=== PATIENT | male | born 1980 | race American Indian/Alaskan Native ===

== ENCOUNTER 2017-10-13 22:53 | Emergency (ER) | payer SELFPAY ==
[2017-10-13 23:22] LABS: Basophils % (Auto) 0.7 % (0.0-1.8); Eosinophils # (Auto) 0.1 K/mm3 (0.0-0.4); Eosinophils % (Auto) 2.1 % (0.0-4.3); Hematocrit 45.4 % (35.5-45.6); Hemoglobin 14.8 gm/dl (11.8-15.2); Lymphocytes # (Auto) 2.4 K/mm3 (1.2-5.4); Lymphocytes % (Auto) 36.5 % (13.4-35.0); Mean Corpuscular HGB Conc 33 % (32-34); Mean Corpuscular Hemoglobin 27 pg (28-32); Mean Corpuscular Volume 84 fl (84-94); Monocytes # (Auto) 0.6 K/mm3 (0.0-0.8); Monocytes % (Auto) 9.2 % (0.0-7.3); Platelet Count 427 K/mm3 (140-440); Red Blood Count 5.42 M/mm3 (3.65-5.03); Red Cell Distribution Width 15.7 % (13.2-15.2)
[2017-10-13 23:34] LABS: BUN/Creatinine Ratio 12; Blood Urea Nitrogen 13 mg/dL (9-20); Calcium 8.9 mg/dL (8.4-10.2); Hemolysis Index 10
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
[2017-10-14 02:50] VITALS: BP 140/76
[2017-10-14 04:00] LABS: Bilirubin,Urine NEG (Negative); Blood,Urine NEG (Negative); Color,Urine Yellow (Yellow); Mucus,Urine FEW /HPF; Protein,Urine <15 mg/dL mg/dL (Negative); Urobilinogen,Urine < 2.0 mg/dL (<2.0)
[2017-10-14 04:16] LABS: Amphetamine Screen,Urine PRESUMPTIVE NEGATIVE; Benzodiazepines Screen,Urine PRESUMPTIVE NEGATIVE; Cocaine Screen,Urine PRESUMPTIVE NEGATIVE; Methadone Screen,Urine PRESUMPTIVE NEGATIVE; Opiate Screen,Urine PRESUMPTIVE NEGATIVE
[2017-10-14 04:50] LABS: Cannabinoid Screen,Urine PRESUMPTIVE POSITIVE
== END 2017-10-14 02:20 | disposition home or self-care (01) ==
LOC: ED 22:53
DX: F22 Delusional disorders (principal); F41.9 Anxiety disorder, unspecified; M62.838 Other muscle spasm; Z91.030 Bee allergy status; F17.200 Nicotine dependence, unspecified, uncomplicated
CPT/HCPCS: 36415; 80048; 80307; 81001; 85025; 99283; G0480; 80320

== ENCOUNTER 2017-12-03 10:41 | Emergency (ER) | payer SELFPAY ==
[2017-12-03 11:22] LABS: Bilirubin,Urine NEG (Negative); Blood,Urine NEG (Negative); Color,Urine Yellow (Yellow); Mucus,Urine FEW /HPF; Protein,Urine <15 mg/dL mg/dL (Negative); Urobilinogen,Urine < 2.0 mg/dL (<2.0)
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
[2017-12-03] MEDS ORDERED: NORCO 5/325 PO ONE (12:37)
--- NOTE | 2017-12-03 13:43 | XRay Report ---
Lumbar spine 3 views: X. History: Low back pain. Findings: Normal height of vertebral bodies and intervertebral discs. Normal articular surfaces. No fracture. No paravertebral mass. Impression: No bony or articular abnormality lumbar spine.
[2017-12-03 17:09] VITALS: BP 117/84
== END 2017-12-03 14:30 | disposition home or self-care (01) ==
LOC: ED 10:41
DX: S39.012A Strain of muscle, fascia and tendon of lower back, initial encounter (principal); Z91.030 Bee allergy status; X58.XXXA Exposure to other specified factors, initial encounter; Y93.01 Activity, walking, marching and hiking; Y99.8 Other external cause status; Y92.488 Other paved roadways as the place of occurrence of the external cause
CPT/HCPCS: 72100; 81001

== ENCOUNTER 2018-03-08 02:10 | Emergency (ER) | payer SELFPAY ==
[2018-03-08] MEDS ORDERED: NACL 0.9% 1000 ML 1,000 ML IV ONE (05:19)
[2018-03-08 05:45] LABS: Basophils % (Auto) 0.6 % (0.0-1.8); Eosinophils # (Auto) 0.2 K/mm3 (0.0-0.4); Eosinophils % (Auto) 2.3 % (0.0-4.3); Hematocrit 39.7 % (35.5-45.6); Hemoglobin 13.5 gm/dl (11.8-15.2); Lymphocytes # (Auto) 2.9 K/mm3 (1.2-5.4); Lymphocytes % (Auto) 37.4 % (13.4-35.0); Mean Corpuscular HGB Conc 34 % (32-34); Mean Corpuscular Hemoglobin 28 pg (28-32); Mean Corpuscular Volume 83 fl (84-94); Monocytes # (Auto) 0.8 K/mm3 (0.0-0.8); Monocytes % (Auto) 10.7 % (0.0-7.3); Platelet Count 378 K/mm3 (140-440); Red Blood Count 4.79 M/mm3 (3.65-5.03)
[2018-03-08 05:48] LABS: Bilirubin,Urine NEG (Negative); Blood,Urine NEG (Negative); Color,Urine Yellow (Yellow); Mucus,Urine FEW /HPF; Protein,Urine <15 mg/dL mg/dL (Negative)
[2018-03-08 06:00] LABS: Alanine Aminotransferase 32 units/L (7-56); Albumin 4.1 g/dL (3.9-5); BUN/Creatinine Ratio 12; Blood Urea Nitrogen 14 mg/dL (9-20); Calcium 8.8 mg/dL (8.4-10.2); Hemolysis Index 6; Lipase 33 units/L (13-60)
[2018-03-08 06:09] LABS: RBC,Urine < 1.0 /HPF (0.0-6.0)
[2018-03-08 06:35] VITALS: BP 139/86
== END 2018-03-08 12:07 | disposition left against medical advice (07) ==
LOC: ED 02:10
DX: R10.9 Unspecified abdominal pain (principal); Z53.21 Procedure and treatment not carried out due to patient leaving prior to being seen by health care provider
CPT/HCPCS: 36415; 80053; 81001; 83690; 85025

== ENCOUNTER 2018-08-12 09:59 | Emergency (ER) | payer SELFPAY ==
[2018-08-12] MEDS ORDERED: ATIVAN ONE (10:32)
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
[2018-08-12] MEDS ORDERED: ATIVAN PO ONE (15:56)
[2018-08-13] MEDS ORDERED: BENADRYL PO ONE (13:44)
[2018-08-14] MEDS ORDERED: HABITROL TD ONE (12:30)
[2018-08-14 13:12] VITALS: BP 115/62
== END 2018-08-14 13:12 ==
LOC: EEVIPCON 09:59 → ED 09:59
DX: F22 Delusional disorders (principal); F15.10 Other stimulant abuse, uncomplicated; F31.9 Bipolar disorder, unspecified

== ENCOUNTER 2019-01-11 20:06 | Emergency (ER) | payer SELFPAY ==
[2019-01-11 20:55] LABS: Basophils % (Auto) 0.6 % (0.0-1.8); Eosinophils # (Auto) 0.1 K/mm3 (0.0-0.4); Eosinophils % (Auto) 1.5 % (0.0-4.3); Hematocrit 43.1 % (35.5-45.6); Hemoglobin 14.3 gm/dl (11.8-15.2); Lymphocytes # (Auto) 1.4 K/mm3 (1.2-5.4); Lymphocytes % (Auto) 30.4 % (13.4-35.0); Mean Corpuscular HGB Conc 33 % (32-34); Mean Corpuscular Volume 85 fl (84-94); Monocytes # (Auto) 0.6 K/mm3 (0.0-0.8); Monocytes % (Auto) 12.9 % (0.0-7.3); Platelet Count 277 K/mm3 (140-440); Red Blood Count 5.06 M/mm3 (3.65-5.03); Red Cell Distribution Width 14.9 % (13.2-15.2)
--- NOTE | 2019-01-11 21:08 | Emergency Department Report ---
ED Psych HPI - General Chief Complaint: Psych Stated Complaint: HEARING VOICES Time Seen by Provider: 01/11/19 20:52 Source: patient Mode of arrival: Ambulatory - History of Present Illness Initial Comments: 38-year-old male with history of schizoaffective disorder presents to ED for medical clearance. Patient states he went to [employer] due to auditory and visual hallucinations, and was told to come to the ER for clearance. Patient states he has been hearing voices "all my life." He states he is currently noncompliant with his psychiatric medications. Patient denies SI, HI. Denies auditory hallucinations commanding him to hurt himself or others. Patient does admit to drug use, however he states he has these hallucinations whether or not he uses drugs. -: unknown Associated Psychiatric Symptoms: auditory hallucinations, visual hallucinations History of same: Yes Quality: constant Improves With: none Worsens With: none Context: not taking psychiatric Associated Symptoms: denies other symptoms Treatments Prior to Arrival: none - Related Data Home Medications Medication Instructions Recorded Confirmed Last Taken No Known Home Medications [No 08/11/18 08/12/18 Unknown Reported Home Medications] Allergies Allergy/AdvReac Type Severity Reaction Status Date / Time bees Allergy Hives Uncoded 10/13/17 23:01 ED Review of Systems ROS: Stated complaint: HEARING VOICES Other details as noted in HPI Comment: All other systems reviewed and negative Psychiatric: auditory hallucinations, visual hallucinations. denies: homicidal thoughts, suicidal thoughts ED Past Medical Hx - Past Medical History Previous Medical History?: Yes Hx Psychiatric Treatment: Yes (paranoid SCHIZOPHRENIA, PTSD, bipolar) - Surgical History Past Surgical History?: No - Social History Smoking Status: Current Every Day Smoker Substance Use Type: Alcohol, Marijuana, Methamphetamines - Medications Home Medications: Home Medications Medication Instructions Recorded Confirmed Last Taken Type No Known Home Medications [No 08/11/18 08/12/18 Unknown History Reported Home Medications] ED Physical Exam - General Limitations: No Limitations General appearance: alert, in no apparent distress - Head Head exam: Present: atraumatic, normocephalic - Eye Eye exam: Present: normal appearance - ENT ENT exam: Present: mucous membranes moist - Neck Neck exam: Present: normal inspection - Respiratory Respiratory exam: Present: normal lung sounds bilaterally. Absent: respiratory distress - Cardiovascular Cardiovascular Exam: Present: regular rate, normal rhythm - GI/Abdominal GI/Abdominal exam: Absent: distended - Extremities Exam Extremities exam: Present: normal inspection - Neurological Exam Neurological exam: Present: alert, oriented X3 - Psychiatric Psychiatric exam: Present: normal affect, normal mood - Skin Skin exam: Present: warm, dry, intact, normal color ED Medical Decision Making - Lab Data Result diagrams: 01/11/19 20:24 - Medical Decision Making Pt seen and evaluated by mental wild guest relation officer. Does not meet inpatient criteria. Will be given outpatient resources. Critical care attestation.: If time is entered above; I have spent that time in minutes in the direct care of this critically ill patient, excluding procedure time. ED Disposition Clinical Impression: Schizoaffective disorder Disposition: DC-01 TO HOME OR SELFCARE Is pt being admited?: No Condition: Stable Instructions: Schizophrenia (ED) Referrals: JULIOCESAR BLEDSOE MD [Primary Care Provider] - 3-5 Days [facility] [Outside] - 3-5 Days Forms: AMA Form
[2019-01-11 21:09] LABS: Bilirubin,Urine NEG (Negative); Blood,Urine NEG (Negative); Mucus,Urine 3+ /HPF; Protein,Urine <15 mg/dL mg/dL (Negative)
[2019-01-11 21:10] LABS: Color,Urine Dark Yellow (Yellow)
[2019-01-11 21:31] LABS: BUN/Creatinine Ratio 12; Blood Urea Nitrogen 12 mg/dL (9-20); Calcium 8.6 mg/dL (8.4-10.2); Hemolysis Index 20
[2019-01-11 21:40] LABS: Benzodiazepines Screen,Urine PRESUMPTIVE NEGATIVE; Cocaine Screen,Urine PRESUMPTIVE NEGATIVE; Methadone Screen,Urine PRESUMPTIVE NEGATIVE; Opiate Screen,Urine PRESUMPTIVE NEGATIVE
[2019-01-11 22:13] LABS: Amphetamine Screen,Urine PRESUMPTIVE POSITIVE; Cannabinoid Screen,Urine PRESUMPTIVE POSITIVE
== END 2019-01-11 22:08 | disposition home or self-care (01) ==
LOC: ED 20:06
DX: F25.9 Schizoaffective disorder, unspecified (principal); F31.9 Bipolar disorder, unspecified; F43.10 Post-traumatic stress disorder, unspecified; F17.200 Nicotine dependence, unspecified, uncomplicated; F12.10 Cannabis abuse, uncomplicated; F15.10 Other stimulant abuse, uncomplicated; Z91.030 Bee allergy status
CPT/HCPCS: 36415; 80048; 80307; 81001; 85025; G0480; 80320

== ENCOUNTER 2019-04-22 22:05 | Emergency (ER) | payer SELFPAY ==
[2019-04-22 22:17] VITALS: BP 133/114
[2019-04-22 23:24] LABS: Basophils % (Auto) 0.6 % (0.0-1.8); Eosinophils % (Auto) 0.5 % (0.0-4.3); Hematocrit 46.2 % (35.5-45.6); Hemoglobin 15.3 gm/dl (11.8-15.2); Lymphocytes # (Auto) 1.8 K/mm3 (1.2-5.4); Lymphocytes % (Auto) 21.4 % (13.4-35.0); Mean Corpuscular HGB Conc 33 % (32-34); Mean Corpuscular Volume 84 fl (84-94); Monocytes # (Auto) 0.6 K/mm3 (0.0-0.8); Monocytes % (Auto) 6.8 % (0.0-7.3); Platelet Count 376 K/mm3 (140-440)
[2019-04-22 23:42] LABS: BUN/Creatinine Ratio 17; Blood Urea Nitrogen 15 mg/dL (9-20); Calcium 9.3 mg/dL (8.4-10.2); Hemolysis Index 23
== END 2019-04-22 23:10 ==
LOC: ED 22:05
DX: F99 Mental disorder, not otherwise specified (principal); Z53.21 Procedure and treatment not carried out due to patient leaving prior to being seen by health care provider
CPT/HCPCS: 36415; 80048; 80320; 85025; G0480